=== PATIENT | female | born 1970 | race Two or more races ===

== ENCOUNTER 2018-05-02 11:23 | Outpatient (CLI) | payer OTHER | END 2018-05-02 11:36 | disposition home or self-care (01) | LOC: MAMO-SONO 11:23 | DX: Z12.31 Encounter for screening mammogram for malignant neoplasm of breast (principal); N64.89 Other specified disorders of breast; N64.4 Mastodynia; N60.11 Diffuse cystic mastopathy of right breast ==

== ENCOUNTER 2020-06-20 16:21 | Outpatient (CLI) | payer OTHER | END 2020-06-20 16:27 | disposition home or self-care (01) | LOC: MAMO-SONO 16:21 | PROVIDERS: ATTEND Obstetrics & Gynecology Maternal & Fetal Medicine | DX: Z12.31 Encounter for screening mammogram for malignant neoplasm of breast (principal); N60.11 Diffuse cystic mastopathy of right breast; N60.12 Diffuse cystic mastopathy of left breast ==

== ENCOUNTER 2022-03-10 10:15 | Outpatient (CLI) | payer OTHER | END 2022-03-10 10:30 | disposition home or self-care (01) | LOC: RAD 10:15 | PROVIDERS: ATTEND Obstetrics & Gynecology Maternal & Fetal Medicine | DX: Z12.31 Encounter for screening mammogram for malignant neoplasm of breast (principal); E78.5 Hyperlipidemia, unspecified ==

== ENCOUNTER 2023-09-09 10:15 | Outpatient (CLI) | payer OTHER | END 2023-09-09 10:16 | disposition home or self-care (01) | LOC: MAMO-SONO 10:15 | PROVIDERS: ATTEND Obstetrics & Gynecology Maternal & Fetal Medicine | DX: Z12.31 Encounter for screening mammogram for malignant neoplasm of breast (principal) ==

== ENCOUNTER 2025-03-07 10:09 | Outpatient (CLI) | payer OTHER | END 2025-03-07 10:10 | disposition home or self-care (01) | LOC: NUCLEAR 10:09 | PROVIDERS: ATTEND Obstetrics & Gynecology | DX: M81.0 Age-related osteoporosis without current pathological fracture (principal) ==

== ENCOUNTER 2025-03-07 15:48 | Outpatient (CLI) | payer OTHER | END 2025-03-07 15:57 | disposition home or self-care (01) | LOC: RAD 15:48 | PROVIDERS: ATTEND Obstetrics & Gynecology | DX: I10 Essential (primary) hypertension (principal); N60.11 Diffuse cystic mastopathy of right breast; N60.12 Diffuse cystic mastopathy of left breast; Z12.31 Encounter for screening mammogram for malignant neoplasm of breast; R10.2 Pelvic and perineal pain ==